=== PATIENT | female | born 1960 | race Caucasian/White ===

== ENCOUNTER 2019-03-19 11:20 | Outpatient (CLI) | payer BC ==
[~2019-03-19] VITALS: Ht 162.6 cm; Wt 104.3 kg
[2019-03-19 12:29] LABS: BASOPHILS # (AUTO) 0.1 10^3/uL (0.0-0.1); BASOPHILS % (AUTO) 1 % (0-10); EOSINOPHILS # (AUTO) 0.2 10^3/uL (0.0-0.3); EOSINOPHILS % (AUTO) 2 % (0-10); HEMATOCRIT 40 % (35-52); HEMOGLOBIN 13.3 G/DL (11.5-16.0); LYMPHOCYTES # (AUTO) 1.8 X 10^3 (1.0-4.0); LYMPHOCYTES % (AUTO) 23 % (12-44); MEAN CORPUSCULAR HEMOGLOBIN 30 PG (25-34); MEAN CORPUSCULAR HGB CONC 33 G/DL (32-36); MEAN CORPUSCULAR VOLUME 90 FL (80-99); MEAN PLATELET VOLUME 9.9 FL (7.4-10.4); MONOCYTES # (AUTO) 0.7 X 10^3 (0.0-1.0); MONOCYTES % (AUTO) 9 % (0-12); NEUTROPHILS % (AUTO) 65 % (42-75); PLATELET COUNT 312 10^3/uL (130-400); RED CELL DISTRIBUTION WIDTH 13.1 % (10.0-14.5); WHITE BLOOD COUNT 7.8 10^3/uL (4.3-11.0)
[2019-03-19 12:30] LABS: BILIRUBIN,URINE NEGATIVE (NEGATIVE); CLARITY,URINE CLEAR; COLOR,URINE YELLOW; GLUCOSE, URINE (UA) NEGATIVE (NEGATIVE); KETONES,URINE NEGATIVE (NEGATIVE); LEUKOCYTE ESTERASE ,URINE NEGATIVE (NEGATIVE); NITRITE,URINE NEGATIVE (NEGATIVE); PH,URINE 5 (5-9); PROTEIN,URINE NEGATIVE (NEGATIVE); UROBILINOGEN,URINE NORMAL (NORMAL)
[2019-03-19 12:42] LABS: INR 0.9 (0.8-1.4); PROTHROMBIN TIME PATIENT 12.6 SEC (12.2-14.7)
[2019-03-19 12:44] LABS: ALANINE AMINOTRANSFERASE 25 U/L (0-55); ALBUMIN 4.6 GM/DL (3.2-4.5); ALKALINE PHOSPHATASE 82 U/L (40-136); BILIRUBIN,TOTAL 0.5 MG/DL (0.1-1.0); BUN/CREATININE RATIO 17; CALCIUM 9.8 MG/DL (8.5-10.1); CARBON DIOXIDE 29 MMOL/L (21-32); CHLORIDE 101 MMOL/L (98-107); CREATININE SERUM 1.02 MG/DL (0.60-1.30); GFR ESTIMATED 55; GLUCOSE 86 MG/DL (70-105); SODIUM 141 MMOL/L (135-145); TOTAL PROTEIN 7.8 GM/DL (6.4-8.2)
[2019-03-19] MEDS ORDERED: BETA15CR37 TP (12:56)
[2019-03-19] MEDS ORDERED: PANT40TA3 PO (12:56)
[2019-03-19] MEDS ORDERED: METO50TA15 PO (12:56)
[2019-03-19] MEDS ORDERED: LISI40TA PO (12:56)
[2019-03-19] MEDS ORDERED: DESV50TA18 PO (12:56)
[2019-03-19] MEDS ORDERED: BUPR150T7 PO (12:56)
[2019-03-19] MEDS ORDERED: LIRA3PEN SQ (12:56)
[2019-03-19] MEDS ORDERED: ATOR40TA70 PO (12:56)
[2019-03-19] MEDS ORDERED: ERGO50006 PO (12:56)
[2019-03-19] MEDS ORDERED: ALPR0.254 PO (12:56)
[2019-03-19 13:00] LABS: ERYTHROCYTE SEDIMENTATION RATE 9 MM/HR (0-30)
[2019-03-19 13:12] LABS: BACTERIA,URINE NEGATIVE /HPF
--- NOTE | 2019-03-19 13:12 | Diagnostic Imaging Report ---
EXAMINATION: CHEST (PA AND LATERAL). CLINICAL INDICATION: 58-year-old female, preoperative exam. COMPARISON: None. FINDINGS: There is a nodular opacity in the right hilar region. Comparison imaging is not available to assess for stability. This measures approximately 1.6 cm in size. The heart size is within normal limits. There is no identified pneumothorax. There is no pleural effusion. There is no identified focal airspace consolidation. There are degenerative changes of the thoracic spine. IMPRESSION: There is a 1.6 cm nodular opacity in the right hilar region. Comparison imaging is not available to assess for potential stability. Although this potentially could relate to the pulmonary vasculature, adenopathy or a pulmonary nodule at this location would also be considered. If comparison imaging is not available to demonstrate stability, a dedicated CT chest with intravenous contrast is recommended for further evaluation. Dictated by: Dictated on workstation # [id number]
[2019-03-19 13:33] VITALS: BP 139/84
[2019-03-19] MEDS ORDERED: BETA15OI4 TP (15:21)
== END 2019-03-19 12:15 | disposition home or self-care (01) ==
LOC: PREOP 11:20
PROVIDERS: ATTEND Orthopaedic Surgery
DX: Z01.812 Encounter for preprocedural laboratory examination (principal); Z01.810 Encounter for preprocedural cardiovascular examination; Z01.811 Encounter for preprocedural respiratory examination; M17.11 Unilateral primary osteoarthritis, right knee
CPT/HCPCS: 36415; 71046; 80053; 81000; 85025; 85610; 85652; 86850; 86900; 86901; 87081

== ENCOUNTER 2019-03-28 06:01 | Inpatient (IN) | payer BC ==
--- NOTE | 2019-03-13 15:20 | HISTORY AND PHYSICAL ---
DATE OF SERVICE: This will be for inpatient admission, date of service, date of surgery, date of admission on 03/28/2019 for right total knee arthroplasty. The patient will require regular inpatient admission due to pain with ambulation, need for physical therapy, need for pain management and comorbidities. HISTORY OF PRESENT ILLNESS: The patient is a 58-year-old female with progressive worsening right knee pain. She reports pain on the medial aspect of her right knee. She reports swelling in the knee. She reports activity limitations because of the knee. She has tried rest, activity modifications, and anti-inflammatories without relief. Due to functional impairment and failure to improve with conservative measures, the patient elected to proceed with surgical intervention. Radiographs reveal complete loss of medial patellofemoral joint spaces with moderate lateral joint space narrowing. REVIEW OF SYSTEMS: No chest pain, no shortness of breath, no dysuria. PAST MEDICAL HISTORY: Hypertension, anxiety, depression, hyperlipidemia. PAST SURGICAL HISTORY: Bilateral knee arthroscopies, tubal ligation. FAMILY HISTORY: Noncontributory. PRIMARY CARE PROVIDER: Vicky Kenney. MEDICATIONS: Vitamin D, atorvastatin, Saxenda, bupropion, metoprolol, desvenlafaxine, lisinopril, and pantoprazole. ALLERGIES: PENICILLIN, SULFA, HYDROCHLOROTHIAZIDE. SOCIAL HISTORY: The patient drinks alcohol socially. Denies tobacco use. PHYSICAL EXAMINATION: GENERAL: The patient is well developed, well nourished, in no acute distress. HEENT: Normocephalic, atraumatic. Pupils are equal, round, reactive to light. Oropharynx is clear. NECK: Supple, no lymphadenopathy. LUNGS: Clear to auscultation bilaterally. HEART: Regular rate and rhythm. ABDOMEN: Soft, nontender, nondistended. EXTREMITIES: Right knee demonstrates palpable osteophytes in the medial aspect of her knee. She has moderate effusion. Knee range of motion 0/2/120. There is no varus valgus laxity. Negative anterior and posterior drawer. She is tender along the medial femoral condyle and has pain medially with Ligia's. She ambulates with an antalgic gait. IMPRESSION: Right knee osteoarthritis, unresponsive to conservative measures. PLAN: Right total knee arthroplasty. The risks, benefits, options, ramifications and recovery have been discussed at length with the patient. She understands and wishes to proceed. Job ID: [id number] DocumentID: [id number] Dictated Date: 03/13/2019 14:50:42 Substation Mechanic Date: 03/13/2019 15:18:31 Dictated By: CIERRA VOSS MD
--- NOTE | 2019-03-19 15:18 | NUR ---
CALLED [facility] IN [place] FOR A LIST OF RECENTLY FILLED MEDICATIONS TO COMPARE WITH THE LIST PUT IN BY PREOP NURSE. I DID NOT CALL AND RE-INTERVIEW THE PATIENT AT THIS TIME HOWEVER I DID CORRECT THE DOSE OF SAXENDA TO THE PRESCRIBED 3MG DAILY FROM 15MG DAILY THAT WAS ENTERED. ALSO THE XANAX WAS ENTERED AT TID PRN HOWEVER IT IS WRITTEN DAILY PRN. THIS HAS NOT BEEN FILLED ANY MORE RECENTLY OR WITH A HIGHER FREQUENCY ACCORDING TO [facility] EITHER. [facility] FILLED: 03-08-19 PRISTIQ 50MG DAILY 01-22-19 LISINOPRIL 40MG DAILY #90 01-15-19 SAXENDA 3MG DAILY 01-11-19 BETAMETHASONE OINT BID 01-06-19 BUPROPION XL 150MG DAILY #90 12-28-18 PROTONIX 40MG DAILY PRN #90 (ENTERED SCHEDULED) 12-21-18 VITAMIN D2 [id number] UNITS WEEKLY 12-09-18 LIPITOR 40MG HS #90 11-17-18 METOPROLOL TARTRATE 50MG BID #180 (NOTED PAST DUE FILL DATE ON MED REC) 11-15-18 XANAX 0.25MG DAILY #20 (PRN)
[2019-03-28] VITALS (14 sets, daily range): BP systolic 81–169; BP diastolic 42–104
[~2019-03-28] VITALS: Ht 162.6 cm; Wt 104.3 kg
[~2019-03-28 06:01] MED LIST: ALPR0.254 PO; ATOR40TA70 PO; BETA15CR37 TP; BETA15OI4 TP; BUPR150T7 PO; DESV50TA18 PO; ERGO50006 PO; LIRA3PEN SQ; LISI40TA PO; METO50TA15 PO; PANT40TA3 PO
[2019-03-28] MEDS ORDERED: CEFUROXIME INJECTION 1,500 MG in WATER (STERILE) FOR INJECTION 15 ML IV ONE (06:15)
[2019-03-28] MEDS: LACTATED RINGERS 1,000 ML IV PRN ×2 (06:33→08:00)
--- NOTE | 2019-03-28 06:42 | Progress Note-Pre Operative ---
Pre-Operative Progress Note H&P Reviewed The H&P was reviewed, patient examined and no changes noted. Date Seen by Provider: Mar 28, 2019 Time Seen by Provider: 06:42 Date H&P Reviewed: Mar 28, 2019 Time H&P Reviewed: 06:42 Pre-Operative Diagnosis: right knee primary osteoarthritis CIERRA VOSS MD Mar 28, 2019 06:42
--- NOTE | 2019-03-28 06:43 | Progress Note-Post Operative ---
Post-Operative Progess Note Surgeon (s)/Vp Outcomes (s) Surgeon CIERRA VOSS MD Vp Outcomes: Cy Sosa Pre-Operative Diagnosis right knee primary osteoarthritis Post-Operative Diagnosis right knee primary osteoarthritis Procedure & Operative Findings Date of Procedure 03/28/19 Procedure Performed/Findings right total knee arthroplasty Anesthesia Type GETA Estimated Blood Loss Estimated blood loss (mL): minimal Specimens/Packing Specimens Removed none Packing: none CIERRA VOSS MD Mar 28, 2019 06:43
[2019-03-28] MEDS ORDERED: OXYC1TAB87 PO (06:44)
[2019-03-28] MEDS ORDERED: CATHETER FLUSH 10 ML SYR IV PRN (06:45)
--- NOTE | 2019-03-28 06:46 | D/C HH Face to Face Order ---
D/C Face to Face Orders Reconcile Patient Problems Problems Reviewed?: Yes Instructions for Patient [facility], Patient Instructions/FollowUp: three weeks Physician to follow Patient: three weeks Discharge Diet for Home: Regular Diet Patient Data-Allergies,Ht & Wt Patient Allergies: Coded Allergies: Penicillins (Verified Allergy, Unknown, Hives, 03/28/19) Sulfa (Sulfonamide Antibiotics) (Verified Allergy, Unknown, Hives, 03/28/19) hydrochlorothiazide (Verified Allergy, Unknown, Hives, 03/28/19) Home Health Need/Face to Face Date of Face to Face: Mar 28, 2019 Clinical Findings: Instability, Muscle weakness, Pain with ambulation, Unsteady gait I have seen Pt vuea-bj-eykf: Yes Discharged To: Home Diagnosis/Conditions: right total knee arthroplasty Patient is Homebound due to: Lorenzo fall risk due to instabilty, Muscle weakness, Pain w/ambulation Homebound Status Due to the above stated illness, injury or surgical procedure (medical condition or diagnosis) and associated clinical findings, the patient is homebound because of his/her inability to leave home except with aid of a supportive device and/or person AND leaving the home requires a considerable and taxing effort or is medically contraindicated. Pt req the following assistanc: Walker Home Health Nursing Orders Home Health Services Order: Physical Therapy-Evaluate & Treat DC right knee sasha and apply steri strips 04/11/19 Therapy Orders Therapy Orders: Physical Therapy, PT to assess for OT Therapy Specific Orders: Eval assistive deivces, Teach enviro modifications/safety, Gait training, Increase strength/endurance, Provider maintenance therapy, Restore ROM Certify Stmt I certify that this patient is under my care and that I, a nurse practitioner or a physician; a family and divorce legal assistant working with me, had a face to face encounter that - meets the physician face to face encounter requirements with this patient as raina perez. CIERRA VOSS MD Mar 28, 2019 06:46
[2019-03-28] MEDS ORDERED: BUPIVACAINE 0.25% 30 ML (SENSORCAINE) VIAL ONE (06:47)
[2019-03-28] MEDS ORDERED: LIDOCAINE PF 2% 5 ML (XYLOCAINE) VIAL ONE ×2 (06:52→07:23)
[2019-03-28] MEDS ORDERED: MIDAZOLAM 2 MG/2 ML (VERSED) VIAL ONE (06:53)
[2019-03-28] MEDS ORDERED: fentaNYL INJECTION 100 MCG/2 ML AMP ONE ×2 (07:04→07:23)
[2019-03-28] MEDS ORDERED: ACETAMINOPHEN 325 MG TABLET PO PRN (07:15)
[2019-03-28] MEDS ORDERED: diphenhydrAMINE 50 MG/ML INJ (BENADRYL) IVP PRN (07:15)
[2019-03-28] MEDS ORDERED: ONDANSETRON 4 MG/2 ML (SDV) Z0FRAN IVP PRN ×2 (07:15→09:15)
[2019-03-28] MEDS ORDERED: INTRA-ARTICULAR IU ONE ×5 (07:15)
[2019-03-28] MEDS ORDERED: morphine PCA 100 MG/100 ML BAG IV PRN (07:15)
[2019-03-28] MEDS ORDERED: TRANEXAMIC ACID 100 MG/ML 10 ML INJECTION IV ONE (07:23)
[2019-03-28] MEDS ORDERED: proPOfol 200 MG/20 ML (DIPRIVAN) VIAL IV ONE (07:23)
[2019-03-28] MEDS ORDERED: DEXAMETHASONE 10 MG/ML (DECADRON) 1 ML VIAL ONE (07:23)
[2019-03-28] MEDS ORDERED: SEVOFLURANE (ULTANE) 15 ML INHAL SOLN ONE ×7 (08:24→08:49)
[2019-03-28] MEDS ORDERED: morphine INJ 10 MG/ML 1ML (SYR OR VIAL) IVP ONE (09:15)
[2019-03-28] MEDS ORDERED: MEPERIDINE (DEMEROL) INJ 50 MG/ML IVP ONE (09:15)
[2019-03-28] MEDS ORDERED: PROMETHAZINE INJ 25 MG/ML (PHENERGAN) AMP IVP ONE (09:15)
[2019-03-28] MEDS ORDERED: LABETALOL HCL 20 MG/4 ML VIAL ONE (09:22)
[2019-03-28] MEDS ORDERED: LABETALOL HCL 100 MG/20 ML VIAL IV PRN (09:30)
--- NOTE | 2019-03-28 11:04 | NUR ---
NEGRO HOOD admitted to room 405-1, with an admitting diagnosis of R total knee, on 03/28/19 from via OR, accompanied by staff, and . NEGRO HOOD introduced to surroundings, call light, bed controls, phone, TV, temperature control, lights, meal times, smoking policy, visitor policy, side rail policy, bathrooms and showers. Patient Rights given to patient in the handbook. NEGRO HOOD verbalizes understanding that [facility] is not responsible for the loss or damage to any personal effects or valuables that are kept in the patients possession during their hospitalization. The following Patient Care Plans were discussed with the patient and : Discharge Planning, pain management, dehydration, and medications. NEGRO HOOD verbalizes understanding of Interdisciplinary Patient Education. Patient and/or family were informed about the Rapid Response Team and its purpose.
[2019-03-28] MEDS: NS IV 1000 ML 1,000 ML IV SCH (11:52)
--- NOTE | 2019-03-28 11:56 | Diagnostic Imaging Report ---
INDICATION: Postop right knee. Time of exam 9:41 a.m. FINDINGS: Two views of the right knee demonstrate postop changes of total knee arthroplasty. Prosthetic elements appear to be in good position. No fracture or loosening is seen. There are overlying skin sasha. IMPRESSION: Satisfactory postop appearance to the right knee. Dictated by: Dictated on workstation # [id number]
[2019-03-28] MEDS: SENNA W/DOCUSATE (SENOKOT S) TABLET PO SCH ×2 (12:04→21:32)
--- NOTE | 2019-03-28 13:07 | Progress Note ---
Standard Progress Note Progress Notes/Assess & Plan Date Seen by a Provider: Mar 28, 2019 Time Seen by a Provider: 13:06 Progress/Assessment & Plan post op check no complaints radiographs--HW well positioned without fracture RLE--dressing intact. 2 plus DP pulse with brisk cap refill. Intact DF and PF of toes and ankle. intact sensation throughout s/p TKA mobilize as able CIERRA VOSS MD Mar 28, 2019 13:07
--- NOTE | 2019-03-28 13:36 | Physical Therapy Evaluation ---
PT Evaluation-General Medical Diagnosis Admission Date Mar 28, 2019 at 06:01 Medical Diagnosis: R TKR Onset Date: Mar 28, 2019 Therapy Diagnosis Therapy Diagnosis: impaired mobility, decreased ROM, decreased strength, decreased endurance Precautions Precautions/Isolations: Standard Precautions Weight Bear Status Right Lower Extremity: Right Weight Bearing/Tolerated Full Weight Bearing Referral Physician: Ian Reason for Referral: Evaluation/Treatment, Strengthening, Gait Medical History Additional Medical History unkn at this time. Social History Home: Single Level Current Living Status: Spouse Entry Into Home: Stairs With Railing (L rail) PT Steps Into Home: 2 Prior Prior Level of Function SCALE: Activities may be completed with or without assistive devices. 2-Jivtntcjyz-tpgykme completes the activity by him/herself with no assistance from a helper. 5-Set-up or Clean-up Assistance-helper sets up or cleans up; patient completes activity. [place] assists only prior to or following the activity. 4-Supervision or Touching Assistance-helper provides verbal cues and/or touching/steadying and/or contact guard assistance as patient completes activity. Assistance may be provided throughout the activity or intermittently. 3-Partial/Moderate Assistance-helper does LESS THAN HALF the effort. [place] lifts, holds or supports trunk or limbs, but provides less than half the effort. 2-Substantial/Maximal Assistance-helper does MORE THAN HALF the effort. [place] lifts or holds trunk or limbs and provides more than half the effort. 9-Vuukyonxl-ybmmyh does ALL the effort. Patient does none of the effort to complete the activity. Or, the assistance of 2 or more helpers is required for the patient to complete the activity. If activity was not attempted, code reason: 7-Patient Refused. 9-Not Applicable-not attempted and the patient did not perform the activity before the current illness, exacerbation or injury. 10-Not Attempted due to Environmental Limitations-(lack of equipment, weather restraints, etc.). 88-Not Attempted due to Medical Conditions or Safety Concerns. Bed Mobility: 6 Transfers (B,C,W/C): 6 Gait: 6 Stairs: 6 Wheelchair Mobility: 6 Indoor Mobility (Ambulation): Independent Stairs: Independent Prior Device Use: none Pt reports she has a FWW at home from a friend. PT Evaluation-Current Subjective Pt in bed pre-tx. Pt agrees to PT this afternoon. Pt spouse is present in room. Pt reports no pain at this time. Pt/Family Goals pt in bed post-tx with CPM set 60(flexion) and -2 (extension). Pt with call light, room phone, and tray table in reach with all needs met at this time. Objective Patient Orientation: Person, Place, Time, Situation Attachments: SCD's, Polar Pack, IV ROM/Strength ROM Lower Extremities RLE 80/+5 degrees Integumentary/Posture Bowel Incontinence: No Bladder Incontinence: No Sensory Vision: Functional Hearing: Functional Sensation Right Lower Extremit: Impaired (Pt reports slight numbness over the distal medial R knee.) Sensation Left Lower Extremity: Intact Transfers Sit to Lying (QC): 3 (Christine) Lying to Sitting/Side of Bed(Q: 4 (CGA) Sit to Stand (QC): 4 (CGA) Gait Does the Patient Walk?: Yes Distance (FIM): 1=up to 49 ft Walk 10 feet (QC): 4 (CGA) Walk 50 ft with 2 Turns(QC): 88 (Nausea) Walk 150 ft (QC): 88 (Nausea) Distance: 20' Gait Assistive Device: FWW Comments/Gait Description Pt walks with a slow antalgic gait pattern with B/L step through gait pattern. Pt uses increased UE to unweight R LE during stance phase. Wheelchair Training Does the Pt Use a Wheelchair?: No Stairs 1 Step (curb) (QC): 88 4 Steps (QC): 88 12 Steps (QC): 88 Balance Sitting Static: Normal Sitting Dynamic: Normal Standing Static: Normal Standing Dynamic: Good Treatment Pt performed LE supine protocol exercises (AP's, SAQ, SLR, glute sets, quad sets) 1 set of 15 reps., Bed mobility, skilled ambulation training, transfer training, and education this date. Assessment/Needs Pt released a large amount of gas by belching during the entire session. Pt had a spell of nausea during walk and broke out in a cold sweat that limited distance of ambulation. Pt is able to bear weight on the R knee this date and ambulate with it in WB'ing. Rehab Potential: Good PT Correction Goals Correction Goals PT Prospecting Driller Helper Goals Time Frame: Apr 04, 2019 Sit to Lying (QC): 6 Lying-Sitting on Side/Bed(QC): 6 Sit to Stand (QC): 6 Roll Left to Right (QC): 6 Chair/Tmy-fb-Iydyc Xfer(QC): 6 Does the Patient Walk: Yes Distance: 150' Walk 10 feet (QC): 6 Walk 50ft with 2 Turns (QC): 6 Walk 150 ft (QC): 6 Gait Assistive Device: FWW PT Plan Problem List Problem List: Activity Tolerance, Functional Strength, Safety, Balance, Gait, Transfer, Bed Mobility, ROM Treatment/Plan Treatment Plan: Continue Plan of Care Treatment Plan: Bed Mobility, Education, Functional Activity Scotty, Functional Strength, Gait, Safety, Therapeutic Exercise, Transfers Frequency: 11 times per week Estimated Hrs Per Day: .25 hour per day Patient and/or Family Agrees t: Yes Pt's goal is to get back home. Safety Risks/Education Patient Education: Gait Training, Transfer Techniques, Reviewed Use of Ice, Correct Positioning, Safety Issues Teaching Recipient: Patient, Family Teaching Methods: Demonstration, Discussion Response to Teaching: Verbalize Understanding, Return Demonstration, Reinforcement Needed Discharge Recommendations Plan Patient will perform bed mobility and transfer training, balance and endurance training, functional strengthening, gait training, stair training, and educat ion, to improve functional mobility and independence at home. Therapy Discharge Recommendati: Other, See Comments (home with spouse) Equpiment Recommendations-D/C: Front Wheeled Walker Time/GCodes Time In: 1253 Time Out: 1326 Total Billed Treatment Time: 33 Total Billed Treatment 1 visit EVL 15' FA 18' HARJINDER ASENCIO PT Mar 28, 2019 13:36
--- NOTE | 2019-03-28 14:40 | Consultation - Hospitalist ---
[facility] 03/28/19 1440: HPI History of Present Illness: HPI/Chief Complaint Pt is a 58 y/o female who is here S/p Right sided TKA by Dr. Samayoa. Pt has a long hx of progressive worsening of R knee pain and swelling. She notes her pain was limiting her ADLs. None of the Conservative measures were helping her so she elected to go ahead with surgical intervention. Pt currently denies any CP, V, Diarrhea, BAUTISTA, or any pain. Pt does admit to mild nausea. Pt takes Liraglutide injections for wt loss. Source: patient, RN/MD Exam Limitations: no limitations Date Seen 03/28/19 Attending Physician David Samayoa MD PCP No,Local Physician Referring Physician Date of Admission Mar 28, 2019 at 06:01 Home Medications & Allergies Home Medications Reviewed patient Home Medication Reconciliation performed by pharmacy medication reconciliations turfgrass technician and/or nursing. Patients Allergies have been reviewed. Allergies Allergies Coded Allergies Penicillins (Verified Allergy, Unknown, Hives, 03/28/19) Sulfa (Sulfonamide Antibiotics) (Verified Allergy, Unknown, Hives, 03/28/19) hydrochlorothiazide (Verified Allergy, Unknown, Hives, 03/28/19) Past Xxheaas-Rpsztf-Fkdkrf Hx Patient Social History Marrital Status: Alcohol Use: Regular Use Alcohol Beverage of Choice: Wine Recreational Drug Use: No Smoking Status: Never a Smoker Physical Abuse Screen: No Sexual Abuse: No Recent Foreign Travel: No Contact w/other who traveled: No Recent Hopitalizations: No Recent Infectious Disease Expo: No Seasonal Allergies Seasonal Allergies: Yes Past Medical History Currently Using CPAP: No Currently Using BIPAP: No Cardiac: High Cholesterol, Hypertension Gastrointestinal: Gastroesophageal Reflux, Chronic Constipation Musculoskeletal: Arthritis Psychosocial: Anxiety, Depression Skin/Integumentary: Psoriasis History of Blood Disorders: No Family History Cardiovascular disease 19 FATHER FH: non-Hodgkin's lymphoma 19 FATHER 19 MOTHER Hypertension 19 FATHER Review of Systems Constitutional: No diaphoresis, No dizziness, No fever EENTM: No hearing loss, No tearing, No nose congestion Respiratory: No cough, No dyspnea on exertion, No orthopnea, No short of breath Cardiovascular: No chest pain, No edema, No palpitations Gastrointestinal: No abdominal pain; constipation (chronic); No diarrhea, No nausea, No vomiting Genitourinary: No dysuria, No frequency, No incontinence Musculoskeletal: No joint pain (post-op R Knee replacement), No joint swelling Skin: No dryness, No pruritus Psychiatric/Neurological: Denies Anxiety; Depressed; Denies Headache, Denies Numbness Physical Exam Physical Exam Vital Signs Vital Signs - First Documented Capillary Refill : Less Than 3 Seconds Height, Weight, BMI Height: '" Weight: lbs. oz. kg; 39.44 BMI Method: General Appearance: No Apparent Distress, WD/WN Eyes: Bilateral Eye Normal Inspection HEENT: Normal ENT Inspection Neck: Full Range of Motion, Normal Inspection, Non Tender, Supple; No Carotid Bruit Respiratory: Chest Non Tender, Lungs Clear, Normal Breath Sounds, No Accessory Muscle Use, No Respiratory Distress Cardiovascular: Regular Rate, Rhythm, No Edema, No Gallop, No JVD, No Murmur, Normal Peripheral Pulses Gastrointestinal: Normal Bowel Sounds, No Organomegaly, No Pulsatile Mass, Non Tender, Soft Back: No CVA Tenderness, No Vertebral Tenderness Extremity: Normal Capillary Refill, Normal Inspection; No Normal Range of Motion (s/p R knee replacement, brace in place); No Pedal Edema, Other (RLE has normal Cap refill, normal distal pulses, normal sensations to toes and throughout) Neurologic/Psychiatric: Alert, Oriented x3, No Motor/Sensory Deficits, Normal Mood/Affect Skin: Normal Color, Warm/Dry Lymphatic: No Adenopathy Results Results/Procedures Labs Patient resulted labs reviewed. Assessment/Plan Assessment and Plan Assess & Plan/Chief Complaint s/p TKA, RLE -Pain managed by Primary -Get PT/OT on-board, and mobilize as able per Dr. Samayoa -Enoxaparin for DVT prophylaxis HTN -Will continue Lisinopril and Metoprolol Dyslipidemia -Will continue Atorvastatin GERD -Will continue Pantoprazole Depression & Anxiety -Will continue Desvenlafaxine, Bupropion -Takes Alprazolam PRN at home as well Chronic Constipation -[place] LINDSEY FRANCO MD 03/28/19 1601: Past Iuheygc-Yxdpmr-Vnrnvm Hx Past Med/Social Hx: Reviewed Nursing Past Med/Soc Hx Family History Cardiovascular disease 19 FATHER FH: non-Hodgkin's lymphoma 19 FATHER 19 MOTHER Hypertension 19 FATHER Diagnosis/Problems Diagnosis/Problems (1) Osteoarthritis of right knee Qualifiers: Osteoarthritis type: primary Qualified Codes: M17.11 - Unilateral primary osteoarthritis, right knee (2) Essential (primary) hypertension Status: Chronic (3) HLD (hyperlipidemia) Status: Chronic Qualifiers: Hyperlipidemia type: other hyperlipidemia Qualified Codes: E78.49 - Other hyperlipidemia Supervisory-Addendum Brief Verification & Attestation Participated in pt care: history, MDM, physical Personally performed: exam, history, MDM, supervision of care Care discussed with: Medical Student Procedures: n/a Results interpretation: Verified all documentation Verification and Attestation of Medical Student E/M Service A medical student performed and documented this service in my presence. I reviewed and verified all information documented by the medical student and made modifications to such information, when appropriate. I personally performed the physical exam and medical decision making. Lindsey Gonzales, Mar 28, 2019,15:[address] [facility] Mar 28, 2019 14:40 LINDSEY GONZALES MD Mar 28, 2019 16:01
[2019-03-28] MEDS ORDERED: ALPRAZolam 0.25 MG (XANAX) TAB PO PRN (15:15)
--- NOTE | 2019-03-28 15:40 | OPERATIVE REPORT ---
DATE OF SERVICE: 03/28/2019 PREOPERATIVE DIAGNOSIS: Right knee primary osteoarthritis. POSTOPERATIVE DIAGNOSIS: Right knee primary osteoarthritis. PROCEDURE: Right total knee arthroplasty. SURGEON: David Voss MD RUCHING MACHINE OPERATOR: Cy Sosa, who assisted throughout the procedure and closed the incision. ANESTHESIA: General endotracheal by Nick Byrd CRNA. TOURNIQUET TIME: Approximately 65 minutes at 300 mmHg. ESTIMATED BLOOD LOSS: Minimal. DRAINS: None. COMPLICATIONS: None. POSTOPERATIVE PLAN: Routine protocol. MATERIALS: Microport cemented size 5 femur, cemented size 5 tibia with 14 mm insert and cemented size 35 patellar button. STATEMENT OF MEDICAL NECESSITY: The patient is a 58-year-old female with long-standing progressive right knee pain. Radiographs revealed severe tricompartmental osteoarthritis. She had persistent pain despite extensive conservative measures and due to progressive functional impairment, the patient elected to proceed with total knee arthroplasty. DESCRIPTION OF PROCEDURE: After risks and benefits of procedure were discussed and questions were answered, informed consent was signed and placed on chart, the operative site was confirmed in the preoperative holding area initialed by the surgeon. The patient was then transferred to the operating room and after adequate levels of general endotracheal anesthetic were obtained, a timeout was called, confirming the operative site. Right lower extremity was prepped and draped in the usual sterile fashion with the leg elevated and the knee flexed, tourniquet was inflated to 300 mmHg. Standard anterior approach was utilized. Hemostasis was obtained with cautery. Medial parapatellar arthrotomy was performed leaving 1 cm cuff on the patella for later reattachment. A portion of the fat pad was resected. The ACL was resected. A subperiosteal release was performed on the proximal medial tibia being careful to stay on the bony surface. Intramedullary guide was passed into the femur. The distal cutting block was placed and this cut was made. The femur sized to a size 5. The 5 cutting block was placed parallel to the epicondylar axis and cuts were made from posterior to anterior. Subperiosteal release was then carefully performed, being careful to stay on the bony surface. Intramedullary guide was then passed into the tibia. The cutting block was placed. The drop virgilio transected the intermalleolar axis and cut was made. The baseplate was placed. Drop virgilio transected the intermalleolar axis. This was prepared using the drill and keel punch with 5 baseplate. The femoral trial was placed and trochlear cut was made. The patella was prepared using the freehand technique by resecting 10 mm off the undersurface peg that was placed and peg holes were drilled. The 35 trial button was placed with 14 mm insert. Full extension was easily obtained under 20 degrees of flexion with gravity was easily obtained. There was no anterior/posterior or medial/lateral laxity in flexion or extension. The trials were removed. The joint was irrigated with pulse lavage. Periarticular block was placed in the posterior capsule, medial and lateral retinaculum, extensor mechanism and subcutaneous tissues. The bone ends were irrigated and dried. The tibial baseplate was cemented in position. Excessive cement was removed. Superior surface was irrigated and dried and polyethylene insert was placed. The distal femur was irrigated and dried and the femoral prosthesis was then cemented into position. Excessive cement was removed. The knee was brought into full extension until cement had cured. The undersurface of patella was irrigated and dried. The patellar button was cemented into position. Once cement had cured, the knee was taken through full range of motion. Full extension was easily obtained under 20 degrees of flexion with gravity was easily obtained. There was no anterior/posterior or medial/lateral laxity in flexion or extension and the patella tracked well. The joint was further irrigated with pulse lavage. The arthrotomy was closed with #2 Tevdek in rxlljr-ls-vydxm interrupted fashion. The knee was flexed. The repair was stable. The patella tracked well. The subcutaneous tissues were irrigated with pulse lavage using a total of 6 liters throughout the procedure. A 0 Vicryl was used to deep subcutaneous tissue, 2-0 Vicryl for the superficial subcutaneous tissue, sasha used on the skin. A soft dressing was applied. Tourniquet deflated and the patient was transferred to the recovery room awake and in stable condition. Job ID: [id number] DocumentID: [id number] Dictated Date: 03/28/2019 09:12:06 Noc Analyst Date: 03/28/2019 15:39:09 Dictated By: DAVID VOSS MD
[2019-03-28] MEDS: CEFUROXIME INJECTION 750 MG in WATER (STERILE) FOR INJECTION 10 ML IV SCH ×2 (18:04→23:38)
[2019-03-28] MEDS: meTOprolol TARTRATE 50 MG (LOPRESSOR) TAB PO SCH (21:32)
[2019-03-29 00:42] VITALS: BP 98/61
[2019-03-29 04:39] VITALS: BP 114/71
[2019-03-29 06:08] LABS: HEMOGLOBIN 9.4 G/DL (11.5-16.0); MEAN PLATELET VOLUME 10.1 FL (7.4-10.4); RED CELL DISTRIBUTION WIDTH 13.5 % (10.0-14.5); WHITE BLOOD COUNT 12.3 10^3/uL (4.3-11.0)
[2019-03-29] MEDS: MULTIVIT W/MINERALS TAB (THERAGRAN M) PO SCH (06:40)
[2019-03-29] MEDS: VENlafaxine XR 75 MG (EFFEXOR XR) CAP PO SCH (06:40)
[2019-03-29] MEDS: oxyCODONE/APAP 5/325MG (PERCOCET 5) TABLET PO PRN ×6 (06:58→21:57)
--- NOTE | 2019-03-29 07:20 | Anesthesia-General Post-Op ---
General Patient Condition Mental Status/LOC: Same as Preop Cardiovascular: Satisfactory Nausea/Vomiting: Absent Respiratory: Satisfactory Pain: Controlled Complications: Absent Post Op Complications Complications None Follow Up Care/Instructions Patient Instructions None needed. Anesthesia/Patient Condition Patient Condition Patient is doing well, no complaints, stable vital signs, no apparent adverse anesthesia problems. No complications reported per nursing. TAMELA MENDOZA CRNA Mar 29, 2019 07:20
[2019-03-29] MEDS: ASPIRIN E.C. 81 MG (ECOTRIN) TAB PO SCH (07:47)
[2019-03-29] MEDS: SENNA W/DOCUSATE (SENOKOT S) TABLET PO SCH ×2 (07:47→20:19)
[2019-03-29] MEDS: lisINopril 40 MG (PRINIVIL) TABLET PO SCH (07:47)
[2019-03-29] MEDS: ENOXAPARIN 30 MG/0.3 ML (LOVENOX) SYR SC SCH ×2 (07:48→20:19)
[2019-03-29] MEDS: meTOprolol TARTRATE 50 MG (LOPRESSOR) TAB PO SCH ×2 (07:48→20:19)
--- NOTE | 2019-03-29 07:51 | Progress Note ---
Standard Progress Note Progress Notes/Assess & Plan Date Seen by a Provider: Mar 29, 2019 Time Seen by a Provider: 07:50 Progress/Assessment & Plan post op check no complaints radiographs--HW well positioned without fracture RLE--dressing intact. 2 plus DP pulse with brisk cap refill. Intact DF and PF of toes and ankle. intact sensation throughout s/p TKA mobilize as able Final Diagnosis no complaints Vital Signs Date Time Temp Pulse Resp B/P (MAP) Pulse Ox O2 Delivery O2 Flow Rate FiO2 03/29/19 07:29 98 Nasal Cannula 2.00 03/29/19 07:00 10 03/29/19 04:39 36.3 69 10 114/71 (85) 97 Nasal Cannula 1.50 03/29/19 02:35 92 Nasal Cannula 2.00 03/29/19 00:42 35.8 72 12 98/61 (73) 98 Nasal Cannula 1.50 03/28/19 21:52 90 Nasal Cannula 2.00 03/28/19 21:00 98 Nasal Cannula 1.50 03/28/19 21:00 10 03/28/19 20:20 36.4 76 10 111/72 (85) 97 Nasal Cannula 1.50 03/28/19 19:05 96 Nasal Cannula 2.00 03/28/19 16:25 35.6 68 10 119/76 (90) 95 Nasal Cannula 1.50 03/28/19 14:33 96 Nasal Cannula 2.00 03/28/19 12:32 37.0 12 03/28/19 12:05 92 Room Air 03/28/19 12:00 35.1 76 16 138/89 (105) 90 Room Air 03/28/19 10:10 Room Air 03/28/19 10:10 37 12 137/99 (112) 100 Room Air 03/28/19 10:00 10 139/95 (110) 99 OxyMask 1.5 03/28/19 10:00 OxyMask 1.5 03/28/19 09:50 12 133/75 (94) 98 OxyMask 1.5 03/28/19 09:45 OxyMask 3 03/28/19 09:40 12 130/94 (106) 100 OxyMask 3 03/28/19 09:31 OxyMask 10 03/28/19 09:30 12 153/104 (120) 92 OxyMask 10 10/23/19 09:20 OxyMask 10 03/28/19 09:20 12 169/103 (125) 93 OxyMask 10 03/28/19 09:07 36.6 16 168/100 (122) 96 OxyMask 10 03/28/19 09:07 OxyMask 10 I & O 03/29/19 07:00 Intake Total 1115 ml Output Total 750 ml Balance 365 ml Laboratory Tests Test 03/29/19 05:30 Range/Units White Blood Count 12.3 H 4.3-11.0 10^3/uL Red Blood Count 3.10 L 4.35-5.85 10^6/uL Hemoglobin 9.4 L 11.5-16.0 G/DL Hematocrit 29 L 35-52 % Mean Corpuscular Volume 94 80-99 FL Mean Corpuscular Hemoglobin 30 25-34 PG Mean Corpuscular Hemoglobin Concent 32 32-36 G/DL Red Cell Distribution Width 13.5 10.0-14.5 % Platelet Count 249 130-400 10^3/uL Mean Platelet Volume 10.1 7.4-10.4 FL Creatinine 1.04 0.60-1.30 MG/DL RLE--dressing intact. NVI distally. Neg Lucinda's s/p RTKA doing well continue PT/OT CIERRA VOSS MD Mar 29, 2019 07:51
[2019-03-29 08:00] VITALS: BP 125/83
[2019-03-29] MEDS: buPROPion SR 150 MG (WELLBUTRIN SR) TAB PO SCH (08:06)
[2019-03-29] MEDS: NS IV 1000 ML 1,000 ML IV SCH ×3 (08:07→20:19)
--- NOTE | 2019-03-29 09:13 | Progress Note - Hospitalist ---
[facility] 03/29/19 0913: Subjective HPI/CC On Admission Date Seen by Provider: Mar 29, 2019 Time Seen by Provider: 08:34 Pt is a 58 y/o female who is here S/p Right sided TKA by Dr. Samayoa. Pt has a lo ng hx of progressive worsening of R knee pain and swelling. She notes her pain was limiting her ADLs. None of the Conservative measures were helping her so she elected to go ahead with surgical intervention. Pt currently denies any CP, V, Diarrhea, BAUTISTA, or any pain. Pt does admit to mild nausea. Pt takes Liraglutide injections for wt loss. Subjective/Events-last exam Pt is alert and conversation this AM RLE dressing intact Tolerated PT well Pain well controlled on Oral Pain meds; Denies pain at rest but does c/o of some discomfort w/ movement Pt able to void bladder normally No BMs yet Review of Systems General: No Night Sweats, No Fatigue, No Malaise HEENT: No Head Aches, No Visual Changes Pulmonary: Dyspnea; No Cough Cardiovascular: No: Chest Pain, Palpitations Gastrointestinal: Constipation; No: Nausea, Vomiting, Abdominal Pain, Diarrhea Genitourinary: No Dysuria Musculoskeletal: leg pain (RLE, only with movement); No: neck pain Neurological: No: Weakness, Numbness Objective Exam Vital Signs Vital Signs Date Time Temp Pulse Resp B/P (MAP) Pulse Ox O2 Delivery O2 Flow Rate FiO2 03/29/19 09:00 98 Nasal Cannula 2.00 03/29/19 07:00 10 03/29/19 04:39 36.3 69 114/71 (85) Capillary Refill : Less Than 3 Seconds General Appearance: No Apparent Distress, WD/WN HEENT: No Normal ENT Inspection Neck: No Normal Inspection, No Non Tender Respiratory: Chest Non Tender, Lungs Clear, Normal Breath Sounds, No Accessory Muscle Use, No Respiratory Distress Cardiovascular: Regular Rate, Rhythm, No Edema, No Gallop, No JVD, No Murmur, Normal Peripheral Pulses Gastrointestinal: Normal Bowel Sounds, No Pulsatile Mass, Non Tender, Soft Extremity: Normal Capillary Refill, Normal Inspection; No Normal Range of Motion (s/p R TKA; decreased ROM, pain w/ movement), No No Calf Tenderness; No Pedal Edema Neurologic/Psychiatric: Alert, Oriented x3, No Motor/Sensory Deficits, Normal Mood/Affect Skin: Normal Color, Warm/Dry Lymphatic: No Adenopathy Results/Procedures Lab Laboratory Tests 03/29/19 05:30 Patient resulted labs reviewed. Assessment/Plan Assessment and Plan Assess & Plan/Chief Complaint s/p TKA, RLE -Pain managed by Primary; Pain controlled at this time -Tolerated PT; -Enoxaparin for DVT prophylaxis HTN -Will continue Lisinopril and Metoprolol Dyslipidemia -Will continue Atorvastatin GERD -Will continue Pantoprazole Depression & Anxiety -Will continue Desvenlafaxine, Bupropion -Takes Alprazolam PRN at home as well Chronic Constipation -[place] BID, continue LINDSEY GONZALES MD 03/29/19 1131: Diagnosis/Problems Diagnosis/Problems (1) HLD (hyperlipidemia) Status: Chronic Qualifiers: Qualified Codes: E78.49 - Other hyperlipidemia (2) Essential (primary) hypertension Status: Chronic (3) Osteoarthritis of right knee Qualifiers: Qualified Codes: M17.11 - Unilateral primary osteoarthritis, right knee Supervisory-Addendum Brief Verification & Attestation Participated in pt care: history, MDM, physical Personally performed: exam, history, MDM, supervision of care Care discussed with: Medical Student Procedures: n/a Results interpretation: Verified all documentation Verification and Attestation of Medical Student E/M Service A medical student performed and documented this service in my presence. I reviewed and verified all information documented by the medical student and made modifications to such information, when appropriate. I personally performed the physical exam and medical decision making. Lindsey Gonzales, Mar 29, 2019,11:26 [facility] Mar 29, 2019 09:13 LINDSEY GONZALES MD Mar 29, 2019 11:31
--- NOTE | 2019-03-29 09:31 | Physical Therapy Daily Note ---
PT Daily Note-Current Subjective Patient agrees to PT at this time. Reports she had severe pain during the night but currently feels okay. Pain Numeric Pain Scale: 0-No Pain Location: No Pain Reported Mental Status Patient Orientation: Person, Place, Time, Situation Attachments: Oxygen, Polar Pack, IV Transfers SCALE: Activities may be completed with or without assistive devices. 9-Wxeeoslhgp-ukwszty completes the activity by him/herself with no assistance from a helper. 5-Set-up or Clean-up Assistance-helper sets up or cleans up; patient completes activity. [place] assists only prior to or following the activity. 4-Supervision or Touching Assistance-helper provides verbal cues and/or t ouching/steadying and/or contact guard assistance as patient completes activity. Assistance may be provided throughout the activity or intermittently. 3-Partial/Moderate Assistance-helper does LESS THAN HALF the effort. [place] lifts, holds or supports trunk or limbs, but provides less than half the effort. 2-Substantial/Maximal Assistance-helper does MORE THAN HALF the effort. [place] lifts or holds trunk or limbs and provides more than half the effort. 4-Rzhztmayj-vfmgrf does ALL the effort. Patient does none of the effort to complete the activity. Or, the assistance of 2 or more helpers is required for the patient to complete the activity. If activity was not attempted, code reason: 7-Patient Refused. 9-Not Applicable-not attempted and the patient did not perform the activity before the current illness, exacerbation or injury. 10-Not Attempted due to Environmental Limitations-(lack of equipment, weather restraints, etc.). 88-Not Attempted due to Medical Conditions or Safety Concerns. Transfers (B, C, W/C): 5 Roll Left to Right (QC): 5 Sit to Lying (QC): 5 Sit to Stand (QC): 6 Weight Bearing Right Lower Extremity: Right Weight Bearing/Tolerated Full Weight Bearing Gait Training Does the Patient Walk?: Yes Gait: 5 Distance: 125' Walk 10 feet (QC): 5 Walk 50 ft with 2 Turns(QC): 5 Gait Assistive Device: FWW Step through pattern, antalgic gait. Exercises Supine Ex: Ankle pumps, Quad Set, Heel Slides, Straight leg raise Supine Reps: 10 Assessment Patient tolerated ambulation well with FWW and antalgic gait. Patient had some difficulty with bed level exercises, requiring minimal assistance to lift RLE off bed for SLR and transfers. Returned patient to bed with polar pack and CPM at 70 degrees. PT Snf Goals Supervising Chef Goals PT Supervising Chef Goals Time Frame: Apr 04, 2019 Sit to Lying (QC): 6 Lying-Sitting on Side/Bed(QC): 6 Sit to Stand (QC): 6 Roll Left to Right (QC): 6 Chair/Dyw-wi-Natxd Xfer(QC): 6 Does the Patient Walk: Yes Distance: 150' Walk 10 feet (QC): 6 Walk 50ft with 2 Turns (QC): 6 Walk 150 ft (QC): 6 Gait Assistive Device: FWW PT Plan Treatment/Plan Treatment Plan: Continue Plan of Care Treatment Plan: Bed Mobility, Education, Functional Activity Scotty, Functional Strength, Gait, Safety, Therapeutic Exercise, Transfers Frequency: 11 times per week Estimated Hrs Per Day: .25 hour per day Patient and/or Family Agrees t: Yes Safety Risks/Education Patient Education: Gait Training, Correct Positioning Teaching Recipient: Patient Teaching Methods: Demonstration, Discussion Response to Teaching: Verbalize Understanding, Return Demonstration Time/GCodes Time In: 821 Time Out: 844 Total Billed Treatment Time: 23 Total Billed Treatment 1 visit EX 13 min GT 10 min JOAO KAPLAN PT Mar 29, 2019 09:31
[2019-03-29 12:00] VITALS: BP 185/80
--- NOTE | 2019-03-29 13:50 | Physical Therapy Daily Note ---
PT Daily Note-Current Subjective Patient and family agree to PT at this time. Patient states it is almost time for her next pain pill but she is feeling okay. Pain Numeric Pain Scale: 6 Location: Right Location Body Site: Knee Pain Description: Acute Mental Status Patient Orientation: Person, Place, Time, Situation Attachments: Polar Pack, IV Transfers SCALE: Activities may be completed with or without assistive devices. 6-Calvzuyijc-yxcroxh completes the activity by him/herself with no assistance from a helper. 5-Set-up or Clean-up Assistance-helper sets up or cleans up; patient completes activity. [place] assists only prior to or following the activity. 4-Supervision or Touching Assistance-helper provides verbal cues and/or touching/steadying and/or contact guard assistance as patient completes activity. Assistance may be provided throughout the activity or intermittently. 3-Partial/Moderate Assistance-helper does LESS THAN HALF the effort. [place] lifts, holds or supports trunk or limbs, but provides less than half the effort. 2-Substantial/Maximal Assistance-helper does MORE THAN HALF the effort. [place] lifts or holds trunk or limbs and provides more than half the effort. 8-Ipruduhwu-wbmxlj does ALL the effort. Patient does none of the effort to complete the activity. Or, the assistance of 2 or more helpers is required for the patient to complete the activity. If activity was not attempted, code reason: 7-Patient Refused. 9-Not Applicable-not attempted and the patient did not perform the activity bef ore the current illness, exacerbation or injury. 10-Not Attempted due to Environmental Limitations-(lack of equipment, weather r estraints, etc.). 88-Not Attempted due to Medical Conditions or Safety Concerns. Transfers (B, C, W/C): 5 Roll Left to Right (QC): 5 Sit to Stand (QC): 6 Weight Bearing Right Lower Extremity: Right Weight Bearing/Tolerated Full Weight Bearing Gait Training Gait: 5 Distance: 150' Walk 10 feet (QC): 5 Walk 50 ft with 2 Turns(QC): 5 Gait Assistive Device: FWW Step through, slightly antalgic Exercises Supine Ex: Ankle pumps, Quad Set, Heel Slides, Straight leg raise (AAROM) Supine Reps: 10 Assessment Patient able to tolerate supine exercises in bed but expresses significant pain with heel slides and straight leg raise, requiring minimal assistance. Patient able to transfer from bed to standing without assistance. Gait pattern showed improvement and patient able to ambulate further than this morning with decreasing pain and stiffness upon ambulation. PT Alf Goals Adjuster Leader Goals PT Adjuster Leader Goals Time Frame: Apr 04, 2019 Sit to Lying (QC): 6 Lying-Sitting on Side/Bed(QC): 6 Sit to Stand (QC): 6 Roll Left to Right (QC): 6 Chair/Xez-jp-Uajid Xfer(QC): 6 Does the Patient Walk: Yes Distance: 150' Walk 10 feet (QC): 6 Walk 50ft with 2 Turns (QC): 6 Walk 150 ft (QC): 6 Gait Assistive Device: FWW PT Plan Treatment/Plan Treatment Plan: Continue Plan of Care Treatment Plan: Bed Mobility, Education, Functional Activity Scotty, Functional Strength, Gait, Safety, Therapeutic Exercise, Transfers Frequency: 11 times per week Estimated Hrs Per Day: .25 hour per day Patient and/or Family Agrees t: Yes Time/GCodes Time In: 1256 Time Out: 1313 Total Billed Treatment Time: 17 Total Billed Treatment 1 visit FA 17min JOAO KAPLAN PT Mar 29, 2019 13:50
--- NOTE | 2019-03-29 14:00 | Occupational Therapy Eval ---
OT Evaluation-General/PLF Medical Diagnosis Admission Date Mar 28, 2019 at 06:01 Medical Diagnosis: R TKR Onset Date: Mar 28, 2019 Therapy Diagnosis Therapy Diagnosis: decreased functional mobility and ADL function Precautions Precautions/Isolations: Standard Precautions Safety Interventions: None Weight Bear Status Weight Bearing Restriction: Weight Bearing/Tolerated Location Restriction: R LE Referral Physician: Ian Referral Reason: Activity Tolerance, Self Care, Evaluation/Treatment, Strengthening/ROM Medical History Pertinent Medical History: HTN Additional Medical History HTN, HLD, OA of R knee Current History R TKA Reviewed History: Yes Social History Home: Single Level Current Living Status: Spouse Entry Into Home: Stairs With Railing (L rail) Steps Into Home: 2 Steps Inside Home: 0 Other Obstacles: Pt states high bed, pt will accommodate and sleep within recliner chair. tub/ shower combo- OT and family walk through transfers, safety recommendations, and DME ADL-Prior Level of Function SCALE: Activities may be completed with or without assistive devices. 8-Qwgczcvyzl-fnjjnkt completes the activity by him/herself with no assistance from a helper. 5-Set-up or Clean-up Assistance-helper sets up or cleans up; patient completes activity. [place] assists only prior to or following the activity. 4-Supervision or Touching Assistance-helper provides verbal cues and/or touching/steadying and/or contact guard assistance as patient completes activity. Assistance may be provided throughout the activity or intermittently. 3-Partial/Moderate Assistance-helper does LESS THAN HALF the effort. [place] lifts, holds or supports trunk or limbs, but provides less than half the effort. 2-Substantial/Maximal Assistance-helper does MORE THAN HALF the effort. [place] lifts or holds trunk or limbs and provides more than half the effort. 6-Kclcnbcwe-srhwpd does ALL the effort. Patient does none of the effort to complete the activity. Or, the assistance of 2 or more helpers is required for the patient to complete the activity. If activity was not attempted, code reason: 7-Patient Refused. 9-Not Applicable-not attempted and the patient did not perform the activity before the current illness, exacerbation or injury. 10-Not Attempted due to Environmental Limitations-(lack of equipment, weather restraints, etc.). 88-Not Attempted due to Medical Conditions or Safety Concerns. Self Care: Independent Functional Cognition: Independent DME/Equipment: Grab Bars, Tub/Shower DME/Equipment Comments Pt IND with I/ADLs without use of AD Occupation: [employer] administrator of [employer] Self: Yes OT Current Status Subjective Pt states 5/10 pain currently at rest, 7/10 pain while in standing. Pt states pain can get up to 10/10. Pt agreeable to OT tx session, present through session. Mental Status/Objective Patient Orientation: Person, Place, Time, Situation, Normal For Age Attachments: IV Current Glasses/Contacts: No Hearing Aids: No Dentures/Partials: No Hand Dominance: Right Upper Extremity ROM WFL BUE Upper Extremity Coordination WFL BUE Upper Extremity Sensation WFL BUE Upper Extremity Strength WFL BUE 4+/5 ADL-Treatment Eating (QC): 6 Oral Hygiene (QC): 6 Lower Body Dressing (QC): 5 On/Off Footwear (QC): 6 (Pt completes sock don/ doffing of R LE without assist and maintaining precautions.) Other Treatments Pt's home throughout day, retired. Pt and state obstacles within the home including shower/ tub and high rise bed. Pt and walk through scenarios to problem solve with skilled OT assist. Pt completes ADLs at chair, stands with FWW with SBA. Pt and educated of typical healing process and OT recommendations of shower bench. Pt and express understanding of OT role; plans to assist pt with I/ADLs within and outside the home if needed. Pt left in recliner chair, call light in reach, all needs met. Education OT Patient Education: Disease process, Instructions to caregiver, Purpose of tx/functional activities, Reviewed precautions, Safety issues, Transfer techniques Teaching Recipient: Patient, Significant Other Teaching Methods: Demonstration, Discussion Response to Teaching: Verbalize Understanding, Return Demonstration, Reinforcement Needed OT Short Term Goals Short Term Goals 1=Demonstrate adherence to instructed precautions during ADL tasks. 2=Patient will verbalize/demonstrate understanding of assistive devices/modifications for ADL. 3=Patient will improve strength/tolerance for activity to enable patient to perform ADL's. OT Jewel Sorter Goals Jewel Sorter Goals 1=Demonstrate adherence to instructed precautions during ADL tasks. 2=Patient will verbalize/demonstrate understanding of assistive devices/modifications for ADL. 3=Patient will improve strength/tolerance for activity to enable patient to perform ADL's. OT Education/Plan Problem List/Assessment Assessment: No Skilled OT Needs ID'd Discharge Recommendations Plan/Recommendations: Discontinue OT Equpiment Recommendations-D/C: Extended Bath Bench Treatment Plan/Plan of Care Treatment,Training & Education: Yes Pt expresses abilities to complete ADLs, pt completes ADLs beside chair. Pt and express understanding of OT role, d/c, and recommendations. Treatment Duration: Mar 29, 2019 Estimated Hrs Per Day: Other (eval and d/c.) Rehab Potential: Good Time/GCodes Start Time: 13:15 Stop Time: 13:37 Total Time Billed (hr/min): 22 Billed Treatment Time 1 EVL (22) NANNETTE HATFIELD OTR Mar 29, 2019 14:00
--- NOTE | 2019-03-29 14:34 | NUR ---
CM/SS discharge planning. Patient is anticipated to discharge on 03/30 and will have [facility]. Patient would like [facility] ([phone]) and information was sent. At discharge finalized orders and meds list would need sent to [facility] ([phone]).
[2019-03-29 15:24] VITALS: BP 109/70
[2019-03-29 19:50] VITALS: BP 119/70
[2019-03-30] VITALS: BP 120/79
[2019-03-30] MEDS: oxyCODONE/APAP 5/325MG (PERCOCET 5) TABLET PO PRN ×5 (00:09→08:08)
[2019-03-30 04:12] VITALS: BP 102/60
--- NOTE | 2019-03-30 05:03 | DISCHARGE SUMMARY ---
DATE OF SERVICE: DIAGNOSES: 1. Right knee primary osteoarthritis. 2. Hypertension. 3. Anxiety. 4. Depression. 5. Hyperlipidemia. PROCEDURE: Right total knee arthroplasty. SUMMARY: The patient is a 58-year-old female who underwent right total knee arthroplasty on the day of admission. Postoperatively, she did well. At time of discharge, her wound was clean and dry. She had no calf tenderness. Negative Homans sign. She was tolerating a diet well and tolerating pain with oral pain medication. CONDITION AT DISCHARGE: Good. DISCHARGE DIET: Regular. FOLLOWUP: Followup is in three weeks. Home physical therapy has been arranged. DISCHARGE MEDICATIONS: Home medications, Percocet as needed for pain and aspirin. ACTIVITIES: Weightbear as tolerated with a walker. DIET: Regular. Job ID: [id number] DocumentID: [id number] Dictated Date: 03/29/2019 17:13:58 [employer] Plant Operator Date: 03/30/2019 05:02:50 Dictated By: CIERRA VOSS MD
[2019-03-30 05:08] LABS: HEMOGLOBIN 8.5 G/DL (11.5-16.0)
[2019-03-30] MEDS: VENlafaxine XR 75 MG (EFFEXOR XR) CAP PO SCH (06:18)
[2019-03-30] MEDS: MULTIVIT W/MINERALS TAB (THERAGRAN M) PO SCH (06:18)
[2019-03-30] MEDS ORDERED: morphine INJ 4 MG/ML 1 ML (VIAL/SYRINGE) IVP PRN (07:00)
--- NOTE | 2019-03-30 07:01 | Progress Note ---
Standard Progress Note Progress Notes/Assess & Plan Date Seen by a Provider: Mar 30, 2019 Time Seen by a Provider: 07:00 Progress/Assessment & Plan post op check no complaints radiographs--HW well positioned without fracture RLE--dressing intact. 2 plus DP pulse with brisk cap refill. Intact DF and PF of toes and ankle. intact sensation throughout s/p TKA mobilize as able Final Diagnosis no complaints Vital Signs Date Time Temp Pulse Resp B/P (MAP) Pulse Ox O2 Delivery O2 Flow Rate FiO2 03/30/19 04:12 36.1 66 18 102/60 (74) 97 Room Air 03/30/19 00:00 37.1 75 18 120/79 (93) 90 Room Air 03/29/19 21:00 16 03/29/19 21:00 98 Nasal Cannula 1.50 03/29/19 19:51 95 Room Air 03/29/19 19:50 36.6 85 20 119/70 (86) 97 Room Air 03/29/19 15:24 36.9 78 18 109/70 (83) 94 Room Air 03/29/19 13:19 Room Air 03/29/19 12:00 36.6 72 18 185/80 (115) 99 Room Air 03/29/19 09:00 98 Nasal Cannula 2.00 03/29/19 08:00 36.9 113 18 125/83 (97) 91 Room Air 03/29/19 07:29 98 Nasal Cannula 2.00 I & O 03/30/19 07:00 Intake Total 2022 ml Output Total 500 ml Balance 1522 ml Laboratory Tests Test 03/30/19 04:18 Range/Units Hemoglobin 8.5 L 11.5-16.0 G/DL Hematocrit 27 L 35-52 % RLE--incision clean and dry. No calf tenderness. Neg Lucinda's s/p RTKA doing well DC Home after PT today CIERRA VOSS MD Mar 30, 2019 07:01
[2019-03-30 07:35] VITALS: BP 99/65
[2019-03-30] MEDS: buPROPion SR 150 MG (WELLBUTRIN SR) TAB PO SCH (08:08)
[2019-03-30] MEDS: SENNA W/DOCUSATE (SENOKOT S) TABLET PO SCH (08:08)
[2019-03-30] MEDS: ASPIRIN E.C. 81 MG (ECOTRIN) TAB PO SCH (08:08)
[2019-03-30] MEDS: ENOXAPARIN 30 MG/0.3 ML (LOVENOX) SYR SC SCH (08:08)
[2019-03-30] MEDS: meTOprolol TARTRATE 50 MG (LOPRESSOR) TAB PO SCH (08:13)
[2019-03-30] MEDS: lisINopril 40 MG (PRINIVIL) TABLET PO SCH (08:13)
--- NOTE | 2019-03-30 09:22 | NUR ---
IRF Evaluation Order received to evaluate patient for the ARU. Chart review complete and it appears patient is ambulating (150ft, FWW) and transferring with supervision; therefore, patient does not require intensive therapies, at this time. Thank you for this referral.
--- NOTE | 2019-03-30 09:28 | Physical Therapy Daily Note ---
PT Daily Note-Current Subjective Patient is awake and agrees to PT at this time. Patient is disconnected from IV and given pain pill prior to PT. Patient states she is ready to go home. Pain Numeric Pain Scale: 7 Location: Right Location Body Site: Knee Pain Description: Acute Mental Status Patient Orientation: Person, Place, Time, Situation Attachments: Polar Pack Transfers SCALE: Activities may be completed with or without assistive devices. 9-Xeoqgrpwqz-bajctts completes the activity by him/herself with no assistance from a helper. 5-Set-up or Clean-up Assistance-helper sets up or cleans up; patient completes activity. [place] assists only prior to or following the activity. 4-Supervision or Touching Assistance-helper provides verbal cues and/or touching/steadying and/or contact guard assistance as patient completes activity. Assistance may be provided throughout the activity or intermittently. 3-Partial/Moderate Assistance-helper does LESS THAN HALF the effort. [place] lifts, holds or supports trunk or limbs, but provides less than half the effort. 2-Substantial/Maximal Assistance-helper does MORE THAN HALF the effort. [place] lifts or holds trunk or limbs and provides more than half the effort. 5-Kulvezhot-ajomrx does ALL the effort. Patient does none of the effort to complete the activity. Or, the assistance of 2 or more helpers is required for the patient to complete the activity. If activity was not attempted, code reason: 7-Patient Refused. 9-Not Applicable-not attempted and the patient did not perform the activity before the current illness, exacerbation or injury. 10-Not Attempted due to Environmental Limitations-(lack of equipment, weather restraints, etc.). 88-Not Attempted due to Medical Conditions or Safety Concerns. Transfers (B, C, W/C): 6 Roll Left to Right (QC): 6 Sit to Stand (QC): 6 Weight Bearing Right Lower Extremity: Right Weight Bearing/Tolerated Full Weight Bearing Gait Training Does the Patient Walk?: Yes Gait: 6 Distance: 250' x2 Walk 10 feet (QC): 6 Walk 50 ft with 2 Turns(QC): 6 Walk 150 ft (QC): 6 Gait Assistive Device: FWW Slow pace, step through pattern, antalgic gait, decreased R stance time. Stair Training Stair Training: Handrails/: 1 handrail, uses walker #of Steps: 3 1 Step (curb) (QC): 5 4 Steps (QC): 88 12 Steps (QC): 88 Required instruction on how to use walker and ascend with unaffected leg/descend with affected leg. Exercises Supine Ex: Ankle pumps, Quad Set, Heel Slides, Straight leg raise Supine Reps: 10 Assessment Patient showed improvement in performance of supine exercises and ability to lift leg off bed but continues to express severe pain with movement. Patient able to transfer from bed independently. Able to ambulate further with FWW and continued antalgic gait. Patient performed 3 stairs with use of 1 railing and walker in preparation for home, requiring instruction for walker use and leading LE but able to complete with supervision. PT Web Content Specialist Goals Web Content Specialist Goals PT Nursing Home Goals Time Frame: Apr 04, 2019 Sit to Lying (QC): 6 Lying-Sitting on Side/Bed(QC): 6 Sit to Stand (QC): 6 Roll Left to Right (QC): 6 Chair/Ota-hf-Roaaz Xfer(QC): 6 Does the Patient Walk: Yes Distance: 150' Walk 10 feet (QC): 6 Walk 50ft with 2 Turns (QC): 6 Walk 150 ft (QC): 6 Gait Assistive Device: FWW PT Plan Treatment/Plan Treatment Plan: Discontinue PT, goals met Treatment Plan: Bed Mobility, Education, Functional Activity Scotty, Functional Strength, Gait, Safety, Therapeutic Exercise, Transfers Frequency: 11 times per week Estimated Hrs Per Day: .25 hour per day Patient and/or Family Agrees t: Yes Time/GCodes Time In: 802 Time Out: 822 Total Billed Treatment Time: 20 Total Billed Treatment 1 visit FA 20min JOAO KAPLAN PT Mar 30, 2019 09:28
--- NOTE | 2019-03-30 09:30 | NUR ---
90 MLS OF MORPHINE WASTED WHEN FRENCH TEACHER DISCONTINUED. WITNESSED BY DAWOOD LEAL.
[2019-03-30 09:40] VITALS: BP 99/65
--- NOTE | 2019-03-30 10:03 | NUR ---
CM DISCHARGE: Finalized discharge orders and med list faxed to [facility]. I went to room to visit with patient about contact numbers but she has already left. Nurse Elvira reports that patient had no concerns et knew that [facility] would be out to see her on Tuesday. No further interventions note.d
== END 2019-03-30 09:40 | disposition home health service (06) | DRG 470 ==
LOC: 4TH 06:01 → SURG 06:02 → 4TH 10:25
PROVIDERS: ADMIT Orthopaedic Surgery; ATTEND Orthopaedic Surgery
PROC: 0SRC0J9 Replacement of Right Knee Joint with Synthetic Substitute, Cemented, Open Approach (ICD-10-PCS; principal; 2019-03-28 07:24)
DX: M17.11 Unilateral primary osteoarthritis, right knee (principal); I10 Essential (primary) hypertension; E78.49 Other hyperlipidemia; E78.00 Pure hypercholesterolemia, unspecified; K21.9 Gastro-esophageal reflux disease without esophagitis; K59.09 Other constipation; L40.9 Psoriasis, unspecified; F41.9 Anxiety disorder, unspecified; F32.9 Major depressive disorder, single episode, unspecified; Z88.0 Allergy status to penicillin; Z88.2 Allergy status to sulfonamides
CPT/HCPCS: 36415; 73560; 82565; 85014; 85018; 85027; 86850; 86900; 86901; 94664; 94760